=== PATIENT | male | born 1985 | race Hispanic/Latino ===

== ENCOUNTER 2019-10-02 21:26 | Emergency (ER) | payer SELFPAY ==
[2019-10-02] MEDS ORDERED: Ondansetron ODT 4 MG TAB ONE (21:49)
[2019-10-02] MEDS ORDERED: Ibuprofen 200 MG TAB ONE (21:49)
[2019-10-02] MEDS ORDERED: Acetaminophen 325 MG TAB ONE (21:49)
[2019-10-02] MEDS ORDERED: Oseltamivir 75 MG CAP ONE (22:34)
== END 2019-10-02 22:45 | disposition home or self-care (01) ==
LOC: NAV ERS 21:26
DX: J06.9 Acute upper respiratory infection, unspecified (principal); B34.9 Viral infection, unspecified; R11.2 Nausea with vomiting, unspecified; E03.9 Hypothyroidism, unspecified; Z87.891 Personal history of nicotine dependence
CPT/HCPCS: 87081; 87430; 87804; 99283; Q0162

== ENCOUNTER 2021-10-19 07:44 | Emergency (ER) | payer SELFPAY ==
[2021-10-19] MEDS ORDERED: Famotidine/PF 20 mg/2ml Vial ONE (08:50)
[2021-10-19] MEDS ORDERED: Sodium Chloride 0.9% 1,000 ML ONE (08:50)
[2021-10-19] MEDS ORDERED: Ondansetron PF 4 MG/2 ML Vial ONE (08:50)
[2021-10-19 08:53] LABS: Bilirubin Moderate (Negative); Blood, Urine Negative (Negative); Clarity Clear (Clear); Glucose, Urine (Dipstick) Negative (Negative); Ketone, Urine 15 mg/dL (Negative); Leukocyte Negative (Negative); Nitrite Negative (Negative); pH, Urine 5.5 (5.0-9.0)
[2021-10-19 08:58] LABS: ALT (SGPT) 26 U/L (8-55); AST (SGOT) 23 U/L (5-34); Albumin 4.5 g/dL (3.5-5.0); Alkaline Phosphatase 133 U/L (40-110); Anion Gap 14 mmol/L (10-20); BUN (Urea Nitrogen) 22 mg/dL (8.9-20.6); Bilirubin, Total 2.5 mg/dL (0.2-1.2); Calc. Creatinine Clearance 0 mL/min (70-130); Calcium 10.3 mg/dL (7.8-10.44); Carbon Dioxide 28 mmol/L (22-29); Chloride 100 mmol/L (98-107); Globulin 3.8 g/dL (2.4-3.5); Glucose 103 mg/dL (70-105); Lipase 4 U/L (8-78); Potassium 4.1 mmol/L (3.5-5.1); Protein, Total 8.3 g/dL (6.0-8.3); Sodium 138 mmol/L (136-145)
[2021-10-19 08:59] LABS: #Basophils 0.1 thou/uL (0.0-0.2); #Eosinphils 0.1 thou/uL (0.0-0.7); #Lymphocytes 1.4 thou/uL (1.20-3.40); #Monocytes 0.6 thou/uL (0.11-0.59); %Basophils 1.2 % (0.0-1.0); %Eosinophils 1.8 % (0.0-10.0); %Lymphocytes 22.2 % (21.0-51.0); %Monocytes 9.8 % (0.0-10.0); %Neutrophils 65.1 % (42.0-75.0); Hemoglobin 16.3 g/dL (14.0-18.0); Mean Corpuscular HGB CONC 31.1 g/dL (32.0-36.0); Mean Corpuscular Hemoglobin 26.2 pg (27.0-31.0); Platelet Count 279 thou/uL (130-400); Protein, Urine (Dipstick) Trace mg/dL (Neg-Trace); Red Blood Cell (RBC) Count 6.22 mill/uL (4.70-6.10); White Blood Cell (WBC) Count 6.2 thou/uL (4.8-10.8)
[2021-10-19 10:31] LABS: Thyroid Stimulating Hormone Less than 0.0025 uIU/mL (0.35-4.94)
[2021-10-19 20:41] LABS: T4 32.9 ug/dL (4.87-11.72)
== END 2021-10-19 10:00 | disposition home or self-care (01) ==
LOC: NAV ERS 07:44
DX: K52.9 Noninfective gastroenteritis and colitis, unspecified (principal); E80.6 Other disorders of bilirubin metabolism; I10 Essential (primary) hypertension; E05.90 Thyrotoxicosis, unspecified without thyrotoxic crisis or storm
CPT/HCPCS: 80053; 81003; 83690; 84436; 84443; 84479; 85025; 96374; 96375; J2405; J7050; S0028

== ENCOUNTER 2022-07-21 19:23 | Emergency (ER) | payer SELFPAY ==
[~2022-07-21 19:23] MED LIST: Iopamidol 370 76% 100 ML VIAL ONE
[2022-07-21] MEDS ORDERED: Morphine 2 MG/ML VIAL ONE ×2 (19:59→22:18)
[2022-07-21] MEDS ORDERED: Ondansetron PF 4 MG/2 ML Vial ONE (19:59)
[2022-07-21] MEDS ORDERED: Sodium Chloride 0.9% 0 ML ONE (19:59)
[2022-07-21 20:30] LABS: Bilirubin Small (Negative); Blood, Urine Trace (Negative); Glucose, Urine (Dipstick) Negative (Negative); Ketone, Urine 40 mg/dL (Negative); Leukocyte Negative (Negative); Nitrite Negative (Negative); Protein, Urine (Dipstick) 30 mg/dL (Neg-Trace); Specific Gravity, Urine 1.025 (1.005-1.030); Urobilinogen 0.2 mg/dL (Less than 2)
[2022-07-21 20:34] LABS: Clarity SL HAZY (Clear)
[2022-07-21 20:36] LABS: ALT (SGPT) 28 U/L (8-55); AST (SGOT) 24 U/L (5-34); Albumin 4.6 g/dL (3.5-5.0); Alkaline Phosphatase 176 U/L (40-110); Anion Gap 21 mmol/L (10-20); BUN (Urea Nitrogen) 17 mg/dL (8.9-20.6); Bilirubin, Total 2.7 mg/dL (0.2-1.2); Calc. Creatinine Clearance 0 mL/min (70-130); Calcium 9.7 mg/dL (7.8-10.44); Carbon Dioxide 24 mmol/L (22-29); Chloride 100 mmol/L (98-107); Estimated GFR 126; Globulin 3.7 g/dL (2.4-3.5); Glucose 138 mg/dL (70-105); Lipase 14 U/L (8-78); Protein, Total 8.3 g/dL (6.0-8.3); Sodium 141 mmol/L (136-145)
[2022-07-21 20:37] LABS: #Basophils 0.2 thou/uL (0.0-0.2); #Lymphocytes 1.3 thou/uL (1.20-3.40); #Monocytes 0.9 thou/uL (0.11-0.59); #Neutrophils 6.1 thou/uL (1.40-6.50); %Basophils 2.8 % (0.0-1.0); %Eosinophils 0.4 % (0.0-10.0); %Lymphocytes 14.9 % (21.0-51.0); %Monocytes 10.1 % (0.0-10.0); %Neutrophils 71.8 % (42.0-75.0); Hemoglobin 16.2 g/dL (14.0-18.0); Mean Corpuscular HGB CONC 31.4 g/dL (32.0-36.0); Mean Corpuscular Hemoglobin 26.2 pg (27.0-31.0); Mean Corpuscular Volume 83.4 fL (78.0-98.0); Mean Platelet Volume 7.6 fL (7.4-10.4); Platelet Count 300 thou/uL (130-400); RBC Distribution Width 12.9 % (11.5-14.5); Red Blood Cell (RBC) Count 6.19 mill/uL (4.70-6.10); White Blood Cell (WBC) Count 8.5 thou/uL (4.8-10.8)
[2022-07-21 20:40] LABS: Mucous/LPF 2+ LPF (<2+); Squamous Epithelial 0-3 HPF (0-3)
[2022-07-21] MEDS ORDERED: Pantoprazole 40 MG VIAL ONE (20:41)
[2022-07-21] MEDS ORDERED: Sodium Chloride 0.9% 1,000 ML ONE (21:16)
[2022-07-21 21:25] LABS: Bilirubin, Direct 0.4 mg/dL (0.1-0.3); Bilirubin, Total 2.7 mg/dL (0.2-1.2)
[2022-07-21] MEDS ORDERED: Sodium Chloride 0.9% 100 ML ONE (23:16)
[2022-07-21] MEDS ORDERED: Piperacillin/Tazobactam 3.375 GM VIAL ONE (23:16)
[2022-07-22 15:56] LABS: HBCM Index 0.08 S/CO (0-0.79); HBSAg Index 0.39 S/CO (0-0.99); Hep A IgM AB Non-Reactive (NonReactive); Hep A IgM S/CO 0.52 S/CO (0-0.79); Hep B Surf Ag Non-Reactive S/CO (NonReactive); Hep C IgG Ab Non-Reactive (NonReactive); Hep C Index 0.09 S/CO (0-0.79); Hepatitis B Core IgM Abs Non-Reactive (NonReactive)
== END 2022-07-22 00:18 | disposition short-term general hospital (02) ==
LOC: NAV ERS 19:23
DX: K38.1 Appendicular concretions (principal); K37 Unspecified appendicitis
CPT/HCPCS: 74177; 80053; 80074; 81003; 81015; 82247; 83690; 85025; 96361; 96365; 96367; 96375; 96376; C9113; J2270; J2405; J2543; J3490; J7050

== ENCOUNTER 2024-03-10 22:10 | Emergency (ER) | payer BC ==
[2024-03-10] MEDS ORDERED: Ondansetron PF 4 MG/2 ML Vial ONE (22:43)
[2024-03-10] MEDS ORDERED: Sodium Chloride 0.9% 1,000 ML ONE (22:44)
[2024-03-10] MEDS ORDERED: Pantoprazole 40 MG VIAL ONE (22:44)
[2024-03-11] MEDS ORDERED: Promethazine HCl 25 MG/ML VIAL ONE (00:31)
[2024-03-11] MEDS ORDERED: Sodium Chloride 0.9% 500 ML ONE (00:31)
[2024-03-11] MEDS ORDERED: Mag-Al Plus 1200/1200/120 MG (30 mL) UDCUP ONE (01:13)
== END 2024-03-11 01:20 | disposition home or self-care (01) ==
LOC: NAV ERS 22:10
DX: K29.00 Acute gastritis without bleeding (principal); R11.2 Nausea with vomiting, unspecified
CPT/HCPCS: 96361; 96365; 96375; C9113; J2405; J2550; J7030; J7050